=== PATIENT | male | born 1985 | race Caucasian/White ===

== ENCOUNTER 2016-04-23 13:53 | Emergency (ER) | payer OTHER ==
[~2016-04-23] VITALS: Ht 175.3 cm; Wt 117.9 kg
[2016-04-23 14:15] VITALS: BP 148/88
[2016-04-23 14:23] LABS: ABSOLUTE BASOPHIL COUNT 0.1 /CUMM (0.0-0.2); ABSOLUTE EOSINOPHIL COUNT 0.2 /CUMM (0.0-0.7); ABSOLUTE GRANULOCYTE CT 8.2 /CUMM (1.4-6.5); ABSOLUTE LYMPH COUNT 1.9 /CUMM (1.2-3.4); ABSOLUTE MONOCYTE COUNT 0.8 /CUMM (0.10-0.60); BASOPHIL % 0.5 % (0.0-2.0); EOSINOPHIL % 1.6 % (0-5); GRANULOCYTE % 73.6 % (42.2-75.2); HEMATOCRIT 46.5 % (42-52); MEAN CORPUSCULAR HGB 28.4 PG (27.0-31.0); MEAN CORPUSCULAR HGB CONC 33.2 G/DL (33.0-37.0); MEAN CORPUSCULAR VOLUME 85.6 FL (80.0-94.0); MEAN PLATELET VOLUME 7.8 FL (7.4-10.4); PLATELET COUNT 232 /CUMM (130-400); RBC DISTRIBUTION WIDTH 12.9 % (11.5-14.5); RED BLOOD CELL CT 5.43 /CUMM (4.70-6.10); WHITE BLOOD CELL COUNT 11.1 /CUMM (4.8-10.8)
--- NOTE | 2016-04-23 16:34 | ED GI/GU/ABDOMINAL COMPLAINT ---
History of Present Illness General Chief Complaint: Male Genitourinary Problems Stated Complaint: ABD PAIN ? UTI Source: patient Exam Limitations: no limitations Vital Signs & Intake/Output Vital Signs & Intake/Output Vital Signs Date Time Temp Pulse Resp B/P Pulse O2 O2 Flow FiO2 Ox Delivery Rate 04/23 1415 98.5 74 18 148/88 98 Room Air Allergies Coded Allergies: NO KNOWN ALLERGIES (11/04/10) Reconcile Medications Ciprofloxacin HCl (Cipro) 500 MG TABLET 1 TAB PO BID prostatitis Triage Note: COMPLAINS OF 1 WEEK OF L SIDE ABD PAIN THAT RADIATES INTO HIS BACK, NAUSEA YESTERDAY. ALSO STATES THAT HE HAS URINARY BURNING , URINE NEGATIVE FOR UTI AND BLOOD. ALSO WORRIED DUE TO HIS DAD IS A BRITTLE DIABETIC AND HE HAS HAD SOME INCREASED URINATION Triage Nurses Notes Reviewed? yes HPI: Patient is a 30-year-old male presents complaining of urinary urgency, frequency , left lower quadrant abdominal pain. Symptoms onset approximately 6-7 days ago. Patient has had similar symptoms, multiple episodes over the past 2-3 years. Patient had a colonoscopy which was reportedly unremarkable. Patient has had urinalysis by his primary doctor which were unremarkable. Patient had a scrotal ultrasound at [facility] which was unremarkable. Patient is in a monogamous relationship with his . Symptoms are currently moderate. Patient feels occasional scrotal pressure and rectal pressure, none currently. Patient denies fevers, chills, penile discharge. Past History Travel History Traveled to [place] past 21 day No Medical History Any Pertinent Medical History? none Neurological: NONE EENT: NONE Cardiovascular: NONE Respiratory: NONE Gastrointestinal: NONE Hepatic: NONE Renal: NONE Musculoskeletal: NONE Psychiatric: NONE Endocrine: NONE Blood Disorders: NONE Cancer(s): NONE SENIOR RECRUITMENT CONSULTANT/Reproductive: NONE Tetanus Vaccine: Surgical History Surgical History: COLONOSCOPY Psychosocial History What is your primary language Grenadian Tobacco Use: Never used ETOH Use: denies use Illicit Drug Use: marijuana Family History Hx Contributory? No Review of Systems Review of Systems Constitutional: Denies: chills, fever. EENTM: Reports: no symptoms. Respiratory: Denies: cough, short of breath. Cardiovascular: Denies: chest pain. GI: Reports: abdominal pain. Denies: diarrhea, bloody stool, vomiting. Genitourinary: Reports: see HPI. Musculoskeletal: Reports: no symptoms. Skin: Reports: no symptoms. Neurological/Psychological: Reports: no symptoms. Hematologic/Endocrine: Reports: no symptoms. Immunologic/Allergic: Reports: no symptoms. Physical Exam Physical Exam General Appearance: well developed/nourished, alert, awake Head: atraumatic, normal appearance Eyes: Bilateral: normal appearance, PERRL, EOMI. Ears, Nose, Throat, Mouth: hearing grossly normal, moist mucous membrane Neck: normal inspection, supple, full range of motion Respiratory: normal breath sounds, chest non-tender, no respiratory distress, lungs clear Cardiovascular: regular rate/rhythm Gastrointestinal: normal bowel sounds, soft, LEFT LOWER QUADRANT TENDERNESS. nO PALPABLE MASSES OR HERNIAS. Rectal: normal inspection, normal rectal tone, PATIENT FEELS PRESSURE WITH PALPATION OF THE PROSTATE. pROSTATE EXAM GROSSLY UNREMARKABLE. Male Genitals: normal genitalia, normal cremaster reflex, NO EPIDIDYMAL OR SCROTAL TENDERNESS. nO PALPABLE HERNIAS IN THE INGUINAL CANAL Back: normal inspection, normal range of motion Extremities: normal range of motion Neurologic/Psych: no motor/sensory deficits, awake, alert, oriented x 3, normal gait, normal mood/affect Skin: intact, normal color, warm/dry Core Measures ACS in differential dx? No Severe Sepsis Present: No Septic Shock Present: No Progress Differential Diagnosis: epididymitis, hernia, ischemic bowel, inflamm bowel dis, ureterolithiasis, urinary retention, urethritis, UTI/pyelo, PROSTATITIS Plan of Care: Orders Procedure Date/time Status COMPREHENSIVE METABOLIC PANEL 04/23 1413 Complete CBC WITHOUT DIFFERENTIAL 04/23 1413 Complete URINALYSIS 04/23 1359 Complete Laboratory Tests 04/23/16 1416: Anion Gap 13, Estimated GFR > 60, BUN/Creatinine Ratio 22.2, Glucose 98, Calcium 9.5, Total Bilirubin 0.8, AST 46, ALT 78 H, Alkaline Phosphatase 72, Total Protein 7.7, Albumin 4.5, Globulin 3.2, Albumin/Globulin Ratio 1.4, CBC w Diff NO MAN DIFF REQ, RBC 5.43, MCV 85.6, MCH 28.4, RDW 12.9, MPV 7.8, Gran % 73.6, Lymphocytes % 17.1 L, Monocytes % 7.2, Eosinophils % 1.6, Basophils % 0.5, Absolute Granulocytes 8.2 H, Absolute Lymphocytes 1.9, Absolute Monocytes 0.8 H, Absolute Eosinophils 0.2, Absolute Basophils 0.1, PUBS MCHC 33.2 04/23/16 1400: Urine Color YEL, Urine Clarity CLEAR, Urine pH 6.0, Ur Specific [place] 1.010, Urine Protein NEG, Urine Ketones NEG, Urine Nitrite NEG, Urine Bilirubin NEG, Urine Urobilinogen 0.2, Ur Leukocyte Esterase NEG, Ur Microscopic EXAM NOT REQUIRED, Urine Hemoglobin NEG, Urine Glucose NEG 04/23/2016 5:45:11 PM: Results of labs and CT scan discussed with patient. Given patient's neurologic symptoms we'll start on antibiotics for the possibility of prostatitis. Patient provided with information for urology follow-up. Patient afebrile, [id number], appears stable for discharge. (EDUARDO HERNANDEZ,MARYCHUY) Diagnostic Imaging: Viewed by Me: CT Scan. Discussed w/RAD: CT Scan. Radiology Impression: PATIENT: TRENTON GUERIN PRESENT AGE: 30 PATIENT ACCOUNT NO: [id number] : 83 LOCATION: [facility] ORDERING PHYSICIAN: MARYCHUY HERNANDEZ SERVICE DATE: 04/23/16 EXAM TYPE: CAT - CT ABD & PELVIS W/O IV CONTRAS EXAMINATION: CT ABDOMEN AND PELVIS WITHOUT CONTRAST CLINICAL INFORMATION: 30-year-old male patient with urgency, frequency, left lower quadrant pain, and tenderness. COMPARISON: Renal ultrasound done 01/14/2012. (Normal). TECHNIQUE: Multidetector volumetric imaging was performed from the superior aspect of the liver through the pubic symphysis. Sagittal and coronal reformatted images were obtained on the technologist's workstation. DLP: 1184 mGy-cm MINIATURE SET BUILDER: Formed stool throughout the entire colon which is not dilated. No obstruction is suspected. FINDINGS: LUNG BASES: The visualized lung bases are unremarkable. LIVER, GALLBLADDER, AND BILIARY TREE: Normal. PANCREAS: Unremarkable. SPLEEN: Unremarkable. ADRENAL GLANDS: Unremarkable. KIDNEYS AND URETERS: The kidneys are normal in size, shape , and attenuation. No hydronephrosis, hydroureter, or calculi seen. No perinephric stranding. BLADDER: Normal. GASTROINTESTINAL TRACT: The small and large bowel are unremarkable. The appendix is unremarkable. There is some "fecalized" contents in the terminal ileum. ABDOMINAL WALL: No significant hernia is appreciated. LYMPH NODES: A number of small nodes are seen in the small bowel mesentery of the left abdomen of unknown significance. VASCULAR: Unremarkable. PELVIC VISCERA: Unremarkable. OSSEOUS STRUCTURES: Unremarkable. IMPRESSION: No significant abnormality. DICTATED BY: FELIPE BIRMINGHAM MD DATE/ TIME DICTATED:04/23/161706 DELIVERY RN:BARRETT DATE/TIME TRANSCRIBED: 04/23/161706 CONFIDENTIAL, DO NOT COPY WITHOUT APPROPRIATE AUTHORIZATION. < Electronically signed in Other Vendor System> SIGNED BY: FELIPE BIRMINGHAM MD 04/23/161726 Initial ED EKG: none Departure Departure Time of Disposition: 1744 Disposition: HOME OR SELF CARE Condition: Stable Clinical Impression Primary Impression: Abdominal pain Secondary Impressions: Prostatitis Referrals: ZECHARIAH MONTIEL,Abdiel DAVID (PCP/Family) Additional Instructions: Follow up with Dr. Glass(urologist) and with your primary doctor for further evaluation. Call in the morning for appointments to be seen within 1 week for further evaluation. Return to the ER if fevers or worsening of symptoms. Departure Forms: Customer Survey General Discharge Information Prescriptions: Current Visit Scripts Ciprofloxacin HCl (Cipro) 1 TAB PO BID #56 TAB
--- NOTE | 2016-04-23 17:27 | CT SCAN REPORT ---
EXAMINATION: CT ABDOMEN AND PELVIS WITHOUT CONTRAST CLINICAL INFORMATION: 30-year-old male patient with urgency, frequency, left lower quadrant pain, and tenderness. COMPARISON: Renal ultrasound done 01/14/2012. (Normal). TECHNIQUE: Multidetector volumetric imaging was performed from the superior aspect of the liver through the pubic symphysis. Sagittal and coronal reformatted images were obtained on the technologist's workstation. DLP: 1184 mGy-cm SECURITY TECHNICIAN: Formed stool throughout the entire colon which is not dilated. No obstruction is suspected. FINDINGS: LUNG BASES: The visualized lung bases are unremarkable. LIVER, GALLBLADDER, AND BILIARY TREE: Normal. PANCREAS: Unremarkable. SPLEEN: Unremarkable. ADRENAL GLANDS: Unremarkable. KIDNEYS AND URETERS: The kidneys are normal in size, shape, and attenuation. No hydronephrosis, hydroureter, or calculi seen. No perinephric stranding. BLADDER: Normal. GASTROINTESTINAL TRACT: The small and large bowel are unremarkable. The appendix is unremarkable. There is some "fecalized" contents in the terminal ileum. ABDOMINAL WALL: No significant hernia is appreciated. LYMPH NODES: A number of small nodes are seen in the small bowel mesentery of the left abdomen of unknown significance. VASCULAR: Unremarkable. PELVIC VISCERA: Unremarkable. OSSEOUS STRUCTURES: Unremarkable. IMPRESSION: No significant abnormality.
[2016-04-23] MEDS ORDERED: CIPRO500 M1 PO (17:48)
== END 2016-04-23 17:53 ==
LOC: ERH 13:53
PROVIDERS: Emergency Medicine
DX: N41.9 Inflammatory disease of prostate, unspecified (principal)
CPT/HCPCS: 74176; 81003